=== PATIENT | male | born 1965 | race American Indian/Alaskan Native ===

== ENCOUNTER 2016-11-24 07:14 | Emergency (ER) | payer SELFPAY ==
--- NOTE | 2016-11-24 08:23 | XRay Report ---
CHEST 2 VIEWS INDICATION: Shortness of breath. Chest congestion. COMPARISON: 01/12/2012 FINDINGS: PA and lateral chest radiographs demonstrate stable cardiomediastinal silhouette and nayeli. No pleural effusions or CHF. Intact bones. CONCLUSION: No acute chest process or significant interval change, as described. Thank you for the opportunity to participate in this patient's care.
[2016-11-24] MEDS ORDERED: APRESOLINE IV ONE (16:25)
--- NOTE | 2016-11-24 16:42 | Emergency Department Report ---
HPI - General Chief Complaint: Dyspnea/Respdistress Time Seen by Provider: 11/24/16 16:19 - HPI HPI: This is a 51-year-old Afro-[place] male who presents the emergency department with complaint of a 1.5 week history of some chest congestion and occasional shortness of breath. He denies any chest pain, vision change, back pain, nausea , vomiting or diaphoresis. However he does have a persistent cough that he says is productive. He has tried a albuterol inhaler and nebulized treatment at home without much relief. [place] f[place]"and believes this adds to his issue. He has a history of congestive heart failure, borderline diabetes, hypertension and sleep apnea. 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 Efren Valencia across the street. No recent travel or sick contacts at home. ED Past Medical Hx - Past Medical History Previous Medical History?: Yes Hx Hypertension: Yes Hx Congestive Heart Failure: Yes Hx Diabetes: Yes ("borderline") Additional medical history: sleep apnea - Surgical History Past Surgical History?: No - Social History Smoking Status: Never Smoker Substance Use Type: Alcohol, Prescribed - Medications Home Medications: Home Medications Medication Instructions Recorded Confirmed Last Taken Type Furosemide [Lasix TAB] 20 mg PO QDAY #30 tablet 09/16/14 Unknown Rx Furosemide [Lasix] 20 mg PO DAILY 09/16/14 09/16/14 Unknown History Lisinopril 10 mg PO DAILY #30 tablet 09/16/14 Unknown Rx ALBUTEROL Inhaler [ProAir HFA 2 puff IH QID PRN #1 inhalation 11/24/16 Unknown Rx Inhaler] guaiFENesin/CODEINE [Robitussin AC] 5 ml PO Q6H PRN #100 ml 11/24/16 Unknown Rx ED Review of Systems ROS: Stated complaint: CONGESTED/SACHA Other details as noted in HPI Comment: All other systems reviewed and negative Constitutional: denies: chills, fever Eyes: denies: eye pain, eye discharge, vision change ENT: denies: ear pain, throat pain Respiratory: cough, shortness of breath, SOB with exertion Cardiovascular: edema. denies: chest pain Gastrointestinal: denies: abdominal pain, nausea, diarrhea Genitourinary: denies: urgency, dysuria Musculoskeletal: denies: back pain, joint swelling, arthralgia Skin: denies: rash, lesions Neurological: denies: headache, weakness, paresthesias Physical Exam - Physical Exam Vital Signs: Vital Signs 11/24/16 07:24 Temperature 98.1 F Pulse Rate 107 H Respiratory 22 Rate Blood Pressure 171/102 O2 Sat by Pulse 96 Oximetry Physical Exam: GENERAL: The patient is well-developed well-nourished. HEENT: Normocephalic. Atraumatic. Extraocular motions are intact. Patient has moist mucous membranes. Pupils equal reactive to light bilaterally. NECK: Supple. Trachea is midline. CHEST/LUNGS: Coarse breath sounds throughout the chest. No tachypnea or accessory muscle use. No cough heard during examination. There is no respiratory distress noted. HEART/CARDIOVASCULAR: Regular. There is no tachycardia. There is no gallop rub or murmur. ABDOMEN: Abdomen is soft, nontender. Patient has normal bowel sounds. There is no abdominal distention. Morbidly obese habitus. SKIN: There is 1-2+ pitting edema to the bilateral lower extremities. NEURO: The patient is awake, alert, and oriented. The patient is cooperative. The patient has no focal neurologic deficits. The patient has normal speech. MUSCULOSKELETAL: There is no tenderness or deformity. There is no limitation range of motion. There is no evidence of acute injury. ED Course Vital Signs 11/24/16 07:24 Temperature 98.1 F Pulse Rate 107 H Respiratory 22 Rate Blood Pressure 171/102 O2 Sat by Pulse 96 Oximetry ED Medical Decision Making - Lab Data Result diagrams: 11/24/16 16:29 11/24/16 16:29 - EKG Data -: EKG Interpreted by Me EKG shows normal: sinus rhythm, axis (LAD), intervals, QRS complexes, ST-T waves Rate: normal - EKG Data When compared to previous EKG there are: previous EKG unavailable Interpretation: normal EKG (with left axis deviation) - Radiology Data Radiology results: report reviewed, image reviewed interpreted by me: Chest x-ray does not show any signs of pneumonia, pleural effusion, pneumothorax or any acute process. CT angiography of the chest does not show any pulmonary embolism. There is a mild diaphragmatic fat filled hernia. - Medical Decision Making 51-year-old male presents to the emergency department with a 1.5 week history of a productive cough and some chest congestion. He was evaluated today with physical exam, labs, imaging and EKG. Heart and lungs are normal to auscultation. Patient does not appear in any respiratory distress or any acute distress. EKG does not show any signs of ST elevation GA, ischemia or dysrhythmia. Chest x-ray does not show any acute process. Patient's labs are mostly unremarkable except for a slightly elevated and equivocal d-dimer. For this reason a CT angiography of the chest was done that did not show any pulmonary embolism or any acute process. He was given some Robitussin-AC for his cough and was given a breathing treatment. There was no significant wheezing and the patient is a diabetic and therefore did not use any steroids for treatment. His vital signs were stable throughout his ED course including being afebrile and no hypoxia. He did have some hypertension and was given 1 dose of anti-hypertensive and came down to a more reasonable level. For all these reasons he appears safe for discharge home. He was given referrals for primary care, Robitussin before meals for cough and an albuterol inhaler. He will return to the ER with any worsening symptoms or any acute distress. - Differential Diagnosis asthma, COPD, CHF, PE Critical Care Time: No Critical care attestation.: If time is entered above; I have spent that time in minutes in the direct care of this critically ill patient, excluding procedure time. ED Disposition Clinical Impression: Bronchitis Upper respiratory infection Qualifiers: URI type: unspecified URI Qualified Code(s): J06.9 - Acute upper respiratory infection, unspecified Hypertension Qualifiers: Hypertension type: essential hypertension Qualified Code(s): I10 - Essential ( primary) hypertension Disposition: DISCHARGED TO HOME OR SELFCARE Is pt being admited?: No Condition: Stable Instructions: Upper Respiratory Infection (ED), Acute Bronchitis (ED), Hypertension (ED) Additional Instructions: Please follow-up with a primary care doctor in the near future. Return to the emergency department with any worsening of your symptoms or any acute distress. You've been prescribed a medication that is sedating. Therefore this medication cannot be mixed with alcohol, or taken prior to driving, working, or being responsible for children. Please try and stay away from foods that are high in salt and caffeinated products to help with her blood pressure. Keep a blood pressure log. Prescriptions: ALBUTEROL Inhaler [ProAir HFA Inhaler] 2 puff IH QID PRN #1 inhalation PRN Reason: Shortness Of Breath guaiFENesin/CODEINE [Robitussin AC] 5 ml PO Q6H PRN #100 ml PRN Reason: Cough Referrals: PRIMARY CARE, [Primary Care Provider] - 3-5 Days BETTINA CHRISTIANSEN MD [Staff Physician] - 3-5 Days [facility] [Outside] - 3-5 Days Forms: Work/School Release Form(ED) Time of Disposition: 20:09
[2016-11-24 16:54] LABS: Basophils % (Auto) 0.3 % (0.0-1.8); Hematocrit 38.9 % (35.5-45.6); Hemoglobin 12.8 gm/dl (11.8-15.2); Mean Corpuscular HGB Conc 33 % (32-34); Mean Corpuscular Hemoglobin 26 pg (28-32); Mean Corpuscular Volume 79 fl (84-94); Platelet Count 215 K/mm3 (140-440); Red Blood Count 4.91 M/mm3 (3.65-5.03); Red Cell Distribution Width 15.9 % (13.2-15.2); White Blood Count 13.8 K/mm3 (4.5-11.0)
[2016-11-24 17:09] LABS: Alanine Aminotransferase 14 units/L (7-56); Albumin 3.4 g/dL (3.9-5); Albumin/Globulin Ratio 0.8 %; Alkaline Phosphatase 76 units/L (35-129); Anion Gap 18 mmol/L; Blood Urea Nitrogen 12 mg/dL (9-20); Calcium 8.9 mg/dL (8.4-10.2); Carbon Dioxide 29 mmol/L (22-30); Chloride 95.3 mmol/L (98-107); Glucose 168 mg/dL (75-100); Potassium 3.9 mmol/L (3.6-5.0); Sodium 138 mmol/L (137-145); Total Protein 7.5 g/dL (6.3-8.2)
[2016-11-24 17:12] LABS: Bilirubin,Direct < 0.2 mg/dL (0-0.2); Bilirubin,Indirect 0.5 mg/dL
[2016-11-24] MEDS ORDERED: NACL ONE (17:15)
[2016-11-24] MEDS: ROBITUSSIN AC PO ONE ×2 (17:49→19:00)
--- NOTE | 2016-11-24 18:52 | Cat Scan Report ---
FINAL REPORT PROCEDURE: CT angiogram chest. TECHNIQUE: Computerized tomographic angiography of the chest was performed after the IV injection of iodinated nonionic contrast including image processing. The image data was postprocessed using 2-dimensional multiplanar reformatted (MPR) and 3-dimensional (MIP and/or volume rendered) techniques. HISTORY: Shortness of breath, elevated D-dimer. COMPARISON: No prior studies are available for comparison. FINDINGS: The trachea and central bronchi appear normal. The thoracic aorta has a normal caliber without evidence of dissection. The pulmonary arteries enhance normally. There are no definite filling defects to indicate pulmonary embolism. There is no mediastinal adenopathy. The heart size is normal. There are no pleural effusions. The lungs are clear and well expanded. The thoracic skeleton appears intact. There is a small diaphragmatic hernia located posteromedially in the right hemithorax. This contains fat and measures 2.6 centimeters x 2.1 centimeters in cross-section. IMPRESSION: No evidence of pulmonary embolism. Small right diaphragmatic hernia containing fat.
[2016-11-24 18:59] VITALS: BP 161/91
[2016-11-24] MEDS ORDERED: DUONEB 0.5 MG-3 MG/3 ML SOLN IH ONE (18:59)
[2016-11-24] MEDS ORDERED: APRESOLINE ONE (19:00)
== END 2016-11-24 20:24 | disposition home or self-care (01) ==
LOC: ED 07:14
DX: J06.9 Acute upper respiratory infection, unspecified (principal); J40 Bronchitis, not specified as acute or chronic; I10 Essential (primary) hypertension; I50.9 Heart failure, unspecified; G47.30 Sleep apnea, unspecified
CPT/HCPCS: 36415; 71020; 71275; 80048; 80074; 83880; 84484; 85025; 85379; 93005; 93010; 94640; 96374; 99285; J0360; Q9967

== ENCOUNTER 2018-08-29 06:42 | Emergency (ER) | payer OTHER ==
[2018-08-29 06:47] VITALS: BP 145/57
[2018-08-29] MEDS ORDERED: DELTASONE PO ONE (07:39)
[2018-08-29] MEDS ORDERED: TORADOL IM ONE (07:39)
--- NOTE | 2018-08-29 07:57 | Emergency Department Report ---
ED Extremity Problem HPI - General Chief complaint: Extremity Injury, Lower Stated complaint: LEFT ANKLE SWOLLEN Time Seen by Provider: 08/29/18 07:38 Source: patient, family Mode of arrival: Ambulatory Limitations: Other - History of Present Illness Initial comments: This is a 53-year-old male presents to ED complaining of left ankle pain since last . Patient denies any injury or trauma to the ankle. 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 Patient states he was recently centralized primary care physician it's within the tendinitis. he denies any history of gout necessitating that this could be a gout flare up. MD Complaint: extremity pain -: Gradual Location: left (ankle) -: Yes arthralgia Severity scale (0 -10): 9 Quality: aching Consistency: intermittent Improves with: immobilization Worsens with: weight bearing, walking Associated Symptoms: denies other symptoms. denies: fever - Related Data Home Medications Medication Instructions Recorded Confirmed Last Taken Furosemide [Lasix] 20 mg PO DAILY 09/16/14 09/16/14 Unknown Previous Rx's Medication Instructions Recorded Last Taken Type Furosemide [Lasix TAB] 20 mg PO QDAY #30 tablet 09/16/14 Unknown Rx Lisinopril 10 mg PO DAILY #30 tablet 09/16/14 Unknown Rx ALBUTEROL Inhaler (OR & NICU) 2 puff IH QID PRN #1 inhalation 11/24/16 Unknown Rx [ProAir HFA Inhaler] guaiFENesin/CODEINE [Robitussin AC] 5 ml PO Q6H PRN #100 ml 11/24/16 Unknown Rx Cyclobenzaprine [Flexeril] 10 mg PO QHS PRN #10 tablet 08/29/18 Unknown Rx Indomethacin [Indocin] 25 mg PO Q8H #10 capsule 08/29/18 Unknown Rx Naproxen [Naprosyn] 500 mg PO BID #30 tablet 08/29/18 Unknown Rx Allergies Allergy/AdvReac Type Severity Reaction Status Date / Time No Known Allergies Allergy Unverified 09/16/14 17:11 ED Review of Systems ROS: Stated complaint: LEFT ANKLE SWOLLEN Other details as noted in HPI Comment: All other systems reviewed and negative ED Past Medical Hx - Past Medical History Previous Medical History?: Yes Hx Hypertension: Yes Hx Congestive Heart Failure: Yes Hx Diabetes: Yes ("borderline") Additional medical history: sleep apnea - Surgical History Past Surgical History?: No - Social History Smoking Status: Never Smoker Substance Use Type: None - Medications Home Medications: Home Medications Medication Instructions Recorded Confirmed Last Taken Type Furosemide [Lasix TAB] 20 mg PO QDAY #30 tablet 09/16/14 Unknown Rx Furosemide [Lasix] 20 mg PO DAILY 09/16/14 09/16/14 Unknown History Lisinopril 10 mg PO DAILY #30 tablet 09/16/14 Unknown Rx ALBUTEROL Inhaler (OR & NICU) 2 puff IH QID PRN #1 inhalation 11/24/16 Unknown Rx [ProAir HFA Inhaler] guaiFENesin/CODEINE [Robitussin AC] 5 ml PO Q6H PRN #100 ml 11/24/16 Unknown Rx Cyclobenzaprine [Flexeril] 10 mg PO QHS PRN #10 tablet 08/29/18 Unknown Rx Indomethacin [Indocin] 25 mg PO Q8H #10 capsule 08/29/18 Unknown Rx Naproxen [Naprosyn] 500 mg PO BID #30 tablet 08/29/18 Unknown Rx ED Physical Exam - General Limitations: Other General appearance: alert, in no apparent distress - Head Head exam: Present: atraumatic, normocephalic - Eye Eye exam: Present: normal appearance - ENT ENT exam: Present: mucous membranes moist - Neck Neck exam: Present: normal inspection - Respiratory Respiratory exam: Present: normal lung sounds bilaterally. Absent: respiratory distress - Cardiovascular Cardiovascular Exam: Present: regular rate, normal rhythm. Absent: systolic murmur, diastolic murmur, rubs, gallop - GI/Abdominal GI/Abdominal exam: Present: soft, normal bowel sounds - Rectal Rectal exam: Present: deferred - Extremities Exam Extremities exam: Present: normal inspection - Expanded Lower Extremity Exam Left Hip exam: Present: normal inspection, full ROM Upper Leg exam: Present: normal inspection, full ROM Knee exam: Present: normal inspection, full ROM. Absent: tenderness, swelling, abrasion, laceration Lower Leg exam: Present: full ROM, swelling (nonpitting,). Absent: tenderness, laceration, deformity, erythema, Fabiano's sign Ankle exam: Present: normal inspection, full ROM, tenderness (mildly tender to palpation). Absent: swelling, abrasion Foot/Toe exam: Present: normal inspection, full ROM. Absent: tenderness Neuro vascular tendon exam: Present: no vascular compromise Gait: Positive: observed and normal (patient walks with a walker normally) - Back Exam Back exam: Present: normal inspection, full ROM - Neurological Exam Neurological exam: Present: alert, oriented X3 - Psychiatric Psychiatric exam: Present: normal affect, normal mood - Skin Skin exam: Present: warm, dry, intact, normal color. Absent: rash ED Course Vital Signs 08/29/18 06:42 Temperature 97.8 F Pulse Rate 110 H Blood Pressure 145/57 O2 Sat by Pulse 95 Oximetry ED Medical Decision Making - Medical Decision Making 53-year-old male presents with left ankle pain. Discussed the patient will follow up with his primary care physician. There was no deformity, injuries seen on the ankle. Vital signs are normal patient is in no acute distress. Critical care attestation.: If time is entered above; I have spent that time in minutes in the direct care of this critically ill patient, excluding procedure time. ED Disposition Clinical Impression: Ankle pain, left, Arthralgia of ankle Disposition: - TO HOME OR SELFCARE Is pt being admited?: No Does the pt Need Aspirin: No Condition: Stable Instructions: Arthralgia (ED), Acute Gouty Arthritis (ED) Additional Instructions: Make sure to follow up with the primary care physician as discussed. Take all your medications as you've been prescribed. If you have any worsening symptoms or develop new symptoms please return to ED immediately. Prescriptions: Cyclobenzaprine [Flexeril] 10 mg PO QHS PRN #10 tablet PRN Reason: Muscle Spasm Indomethacin [Indocin] 25 mg PO Q8H #10 capsule Naproxen [Naprosyn] 500 mg PO BID #30 tablet Referrals: ADRIAN WEBSTER MD [Primary Care Provider] - 3-5 Days Forms: Work/School Release Form(ED) Time of Disposition: 08:04
== END 2018-08-29 08:12 | disposition home or self-care (01) ==
LOC: ED 06:42
DX: M25.572 Pain in left ankle and joints of left foot (principal); I11.0 Hypertensive heart disease with heart failure; I50.9 Heart failure, unspecified; E11.9 Type 2 diabetes mellitus without complications
CPT/HCPCS: 96372; 99282; J1885; J7512